=== PATIENT | female | born 1945 | race Caucasian/White ===

== ENCOUNTER 2025-04-12 14:24 | Inpatient (IN) | payer OTHER ==
[~2025-04-12] VITALS: Ht 149.9 cm; Wt 63.0 kg
[2025-04-12] MEDS: MORPHINE SULFATE 4 MG/ML SYR/VIAL IV ONE (15:21)
[2025-04-12] MEDS: ONDANSETRON HCL 4 MG/2 ML VIAL IV ONE (15:21)
--- NOTE | 2025-04-12 15:26 | DVH ---
EXAM DESCRIPTION: CT CT AB PEL WO CON-NO ORAL OR IV CLINICAL HISTORY: abd pain, eval hernia COMPARISON: None TECHNIQUE: CT abdomen and pelvis without IV contrast was performed. Coronal and sagittal MPR images were generat ed.CTDI/ DLP = 5.77 / 239.9 Dose reduction technique with one or more of the following methods was performed: Automated exposure control, adjustment of the mA and/or kV according to patient size, use of iterative reconstruction [place] FINDINGS: Lower chest: Clear lung bases. Liver: Homogenous in attenuation. . Biliary: No calcified gallstones. No biliary ductal dilatation. Pancreas: No fat stranding or focal lesion. Spleen: Normal in size.. Adrenal glands: No nodularity. No nodularity Kidneys: No nephrolithiasis. No hydroureteronephrosis. . Bladder: Underdistended, limiting evaluation. Reproductive organs: Normal. Bowel: No bowel wall thickening or dilatation. Colonic diverticulosis without evidence of diverticuli tis. Normal appendix.. Peritoneum: No free fluid. No free air. Vessels: Normal caliber abdominal aorta. Moderate atherosclerotic calcifications.. Lymph nodes: No suspicious lymph nodes. Soft tissues: Small fat containing upper abdominal ventral hernia. . Osseous structures: No acute fracture or subluxation. No suspicious osseous lesions. Degenerative c hanges of the visualized thoracolumbar spine. IMPRESSION: 1. No acute abnormality within the abdomen or pelvis.
[2025-04-12 15:27] LABS: Hematocrit 41.8 % (36.0-46.0); Hemoglobin 14.1 g/dL (12.2-16.2); Mean Corpuscular Hemoglobin 32.4 pg (28.0-32.0); Mean Corpuscular Volume 96.4 fL (80.0-100.0); Nucleated Red Blood Cells % 0.0 %
--- NOTE | 2025-04-12 15:52 | ED.PDOC ---
GI ASSESSMENT HPI Comments 79 y/o F with a history of dyslipidemia referred by urgent care for evaluation of a painful ventral hernia. Patient states she underwent right inguinal hernia repair years ago. At that time, she was told by her surgeon that she also had a supraumbilical hernia which he reduced intraoperatively. Patient states 3 days ago she began feeling supraumbilical pain and the hernia in that area began protruding. She states it is exquisitely painful and has not tried to push it back in. She also states it does not go back in when she is lying flat. She denies any fever, nausea, vomiting or constipation. Her last bowel movement was this morning. 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 Moist mucous membranes.) Neck: Full Range of Motion, Normal Inspection Respiratory: Lungs Clear, No Accessory Muscle Use, No Respiratory Distress, Normal Breath Sounds Cardiovascular: No Edema, No JVD, Regular Rate/Rhythm Breast Exam: Deferred Gastrointestinal: Soft, Other (Tender supraumbilical mass, approximate nicely 3 x 3 cm. No overlying discoloration.) Genitalia: Deferred Pelvic: Deferred Rectal: Deferred Extremities: Normal inspection, Normal range of motion, Non-tender, No pedal edema Neurologic: Alert (Oriented x4), Normal Affect, Normal Mood, Other (Ambulatory) Cerebellar Function: NOT DONE Reflexes: NOT DONE Skin: Dry, Normal Color, Warm Lymphatic: NOT DONE EKG EKG : Comments Sinus bradycardia, rate 48, normal intervals, normal axis, normal QRS, no ST/T changes. Was a procedure done? Was a procedure done?: No GI differential Dx Differential Diagnosis: Hernia Other Differential Diagnosis Uncomplicated hernia, strangulated or incarcerated hernia, bowel obstruction, neoplasm, among others X-Ray, Labs, Meds, VS Vital Signs Date Time Temp Pulse Resp B/P (MAP) Pulse Ox O2 Delivery O2 Flow Rate FiO2 04/12/25 19:00 51 17 127/69 (88) 04/12/25 18:51 127/59 04/12/25 18:00 49 13 99 Room Air* 0 21 04/12/25 18:00 98.2 49 13 147/78 (101) 99 98.2 04/12/25 16:49 51 14 139/72 (94) 98 04/12/25 16:32 48 04/12/25 15:21 52 14 150/71 04/12/25 14:25 98.1 53 18 128/76 98 98.1 Lab Test 04/12/25 18:33 04/12/25 16:16 04/12/25 15:17 Range/Units Urine Color Light-yellow Yellow Urine Clarity Clear Clear Urine pH 5.5 5.0-9.0 Urine Specific [place] 1.008 1.001-1.035 Urine Protein Negative Negative Urine Ketones Negative Negative Urine Blood Negative Negative /uL Urine Nitrite Negative Negative Urine Bilirubin Negative Negative Urine Urobilinogen Normal Negative mg/dL Urine Leukocyte Esterase 3+ Negative /uL Urine RBC 3 0 - 4 /hpf Urine Microscopic WBC 75 H 0-5 /HPF Urine Squamous Epithelial Cells Few <5 /hpf Urine Bacteria Few H None Seen /hpf Urine Glucose Normal Normal mg/dL Sodium Level 140 136-145 mmol/L Potassium Level 4.4 3.5-5.1 mmol/L Chloride Level 104 98-107 mmol/L Carbon Dioxide Level 28 20-31 mmol/L Anion Gap 8 5-15 Blood Urea Nitrogen 7 L 9-23 mg/dL Creatinine 0.67 0.550-1.02 mg/dL Glomerular Filtration Rate Calc 90 >90 mL/min BUN/Creatinine Ratio 10.4 10.0-20.0 Serum Glucose 104 74-106 mg/dL Calcium Level 9.5 8.7-10.4 mg/dL Total Bilirubin 0.6 0.2-1.0 mg/dL Aspartate Amino Transferase (AST) 34 13-40 U/L Alanine Aminotransferase (ALT) 22 7-40 U/L Alkaline Phosphatase 64 46-116 U/L Troponin I High Sensitivity < 3 L < 3 L </=34 ng/L Total Protein 6.8 5.7-8.2 g/dL Albumin 4.7 3.2-4.8 g/dL White Blood Count 6.5 4.4-10.8 10^3/uL Red Blood Count 4.34 4.0-5.20 10^6/uL Hemoglobin 14.1 12.2-16.2 g/dL Hematocrit 41.8 36.0-46.0 % Mean Corpuscular Volume 96.4 80.0-100.0 fL Mean Corpuscular Hemoglobin 32.4 H 28.0-32.0 pg Mean Corpuscular Hemoglobin Concent 33.6 32.0-36.0 g/dL Red Cell Distribution Width 13.2 11.8-14.3 % Platelet Count 273 140-450 10^3/uL Mean Platelet Volume 8.5 6.9-10.8 fL Neutrophils (%) (Auto) 62.1 37.0-80.0 % Lymphocytes (%) (Auto) 26.5 10.0-50.0 % Monocytes (%) (Auto) 8.3 0.0-12.0 % Eosinophils (%) (Auto) 2.0 0.0-7.0 % Basophils (%) (Auto) 1.1 0.0-2.0 % Neutrophils # (Auto) 4.1 1.6-8.6 10 ^3/uL Lymphocytes # (Auto) 1.7 0.4-5.4 10 ^3/uL Monocytes # (Auto) 0.5 0-1.3 10 ^3/uL Eosinophils # (Auto) 0.1 0-0.8 10 ^3/uL Basophils # (Auto) 0.1 0-0.2 10 ^3/uL Nucleated Red Blood Cells 0.0 % Lactic Acid Level 0.8 0.4-2.0 mmol/L Current Medications Medications (Trade) Dose Ordered Sig/Unique Route Start Time Stop Time Status Last Admin Ondansetron HCl (Zofran) 4 mg ONCE ONCE IV 04/12/25 15:00 04/12/25 15:01 DC 04/12/25 15:21 Morphine Sulfate 4 mg ONCE ONCE IV 04/12/25 15:00 04/12/25 15:01 DC 04/12/25 15:21 Fentanyl Citrate 25 mcg ONCE ONCE IV 04/12/25 18:45 04/12/25 18:46 DC 04/12/25 18:[address] [address] Ph: [phone] DIAGNOSTIC IMAGING Diagnostic Imaging Report : [id number] Signed PATIENT: KARMA JEWELL ACCT: [id number] UNIT: [id number] : 1945 LOC: ER ROOM / BED: / AGE / SEX: 79 / F ADM STATUS: REG ER SERVICE 1448 ORDERING PHYSICIAN: ESAU HIRSCH MD PROCEDURE(s): ABPL - CT AB PEL WO CON-NO ORAL OR IV REASON: abd pain, eval hernia ORDER NUMBER(s): [id number], ACCESSION NUMBER(s): [id number] EXAM DESCRIPTION: CT CT AB PEL WO CON-NO ORAL OR IV CLINICAL HISTORY: abd pain, eval hernia COMPARISON: None TECHNIQUE: CT abdomen and pelvis without IV contrast was performed. Coronal and sagittal MPR images were generated.CTDI/ DLP = 5.77 / 239.9 Dose reduction technique with one or more of the following methods was performed: Automated exposure control, adjustment of the mA and/or kV according to patient size, use of iterative reconstruction [place] FINDINGS: Lower chest: Clear lung bases. Liver: Homogenous in attenuation. . Biliary: No calcified gallstones. No biliary ductal dilatation. Pancreas: No fat stranding or focal lesion. Spleen: Normal in size.. Adrenal glands: No nodularity. No nodularity Kidneys: No nephrolithiasis. No hydroureteronephrosis. . Bladder: Underdistended, limiting evaluation. Reproductive organs: Normal. Bowel: No bowel wall thickening or dilatation. Colonic diverticulosis without evidence of diverticulitis. Normal appendix.. Peritoneum: No free fluid. No free air. Vessels: Normal caliber abdominal aorta. Moderate atherosclerotic calcifications.. Lymph nodes: No suspicious lymph nodes. Soft tissues: Small fat containing upper abdominal ventral hernia. . Osseous structures: No acute fracture or subluxation. No suspicious osseous lesions. Degenerative changes of the visualized thoracolumbar spine. IMPRESSION: 1. No acute abnormality within the abdomen or pelvis. ATED BY: TAMI BONILLA MD DICTATED DATE/TIME: 04/12/251523 SIGNED BY: TAMI BONILLA MD SIGNED DATE/TIME: 04/12/251523 CC: X-Ray, Labs, Meds, VS Comment 79 y/o F with a history of dyslipidemia referred by urgent care for evaluation of a painful ventral hernia. Vitals remarkable for BP 150/71, and heart rate as low as 48 Exam remarkable for a tender supraumbilical mass, approximate nicely 3 x 3 cm. No overlying discoloration. Rhythm strip independently interpreted by me: Sinus bradycardia, rate 48, no ectopy. CT abdomen and pelvis Soft tissues: Small fat containing upper abdominal ventral hernia. IMPRESSION: 1. No acute abnormality within the abdomen or pelvis. CBC, CMP, lactate and serial troponins unremarkable for any abnormality of acute significance Patient treated with the following in the ED: Morphine 4 mg IV, Zofran 4 mg IV, fentanyl 25 mcg IV Patient refused any attempts at manual reduction in the ED, stating the morphine did not significantly improve her pain, and the area in question was too tender to be touched. Plan is to admit the patient for pain control and surgical evaluation. Case discussed with EARL Vega, who agreed to admit the patient. Time of 1ST Reevaluation: 15:06 Reevaluation 1ST: Unchanged Patient Education/Counseling: Diagnosis, Treatment, Need For Follow Up Family Education/Counseling: No Family Present SEPSIS Sepsis Screen Date sepsis recognized/suspect: Apr 12, 2025 Time Sepsis recognized/suspect: 7 Recent Procedure: No On Antibiotic Therapy: No Respiratory Rate >20: No Heart Rate >90: No Temp<36 C (96.8 F) or >38.3 C: No SBP <90 or MAP <65 mmHG: No New Acute Mental Status Change: No Is the patient on CPAP, BIPAP,: No Physician Orders Troponin-I Hs (04/13/25 00:00) Ct Ab Pel Wo Con-No Oral Or Iv (04/12/25 14:48) Saline Lock (04/12/25 14:52) Vital Signs Date Time Temp Pulse Resp B/P (MAP) Pulse Ox O2 Delivery O2 Flow Rate FiO2 04/12/25 19:00 51 17 127/69 (88) 04/12/25 18:51 127/59 04/12/25 18:00 49 13 99 Room Air* 0 21 04/12/25 18:00 98.2 49 13 147/78 (101) 99 98.2 04/12/25 16:49 51 14 139/72 (94) 98 04/12/25 16:32 48 04/12/25 15:21 52 14 150/71 04/12/25 14:25 98.1 53 18 128/76 98 98.1 Laboratory Tests Test 04/12/25 15:17 Lactic Acid Level 0.8 mmol/L (0.4-2.0) White Blood Count 6.5 10^3/uL (4.4-10.8) Medications Medications Dose Ordered Sig/Unique Route Start Time Stop Time Status Last Admin Dose Admin Fentanyl Citrate 25 mcg ONCE ONCE IV 04/12/25 18:45 04/12/25 18:46 DC 04/12/25 18:51 Morphine Sulfate 4 mg ONCE ONCE IV 04/12/25 15:00 04/12/25 15:01 DC 04/12/25 15:21 Ondansetron HCl 4 mg ONCE ONCE IV 04/12/25 15:00 04/12/25 15:01 DC 04/12/25 15:21 Departure 1 Departure Time of Disposition: 17:00 Impression: Primary Impression: Ventral hernia Qualified Codes: K43.9 - Ventral hernia without obstruction or gangrene Additional Impression: Intractable pain Disposition: ADMITTED INPATIENT Admit to: Med Surg Condition: Fair Critical Care Note Critical Care Time?: No Stability Stability form required: No Heart Score Heart Score: Heart Score Response (Comments) Value History N/A 0 EKG N/A 0 Age N/A 0 Risk Factors N/A 0 Troponin N/A 0 Total 0 I personally scribed for ESAU HIRSCH MD ([email or web address]) on 04/12/25 at 16:39. Electronically submitted by Dangelo Sow [email or web address]). ESAU HIRSCH MD Apr 12, 2025 15:52
[2025-04-12 16:53] LABS: Alanine Aminotransferase 22 U/L (7-40); Albumin 4.7 g/dL (3.2-4.8); Alkaline Phosphatase 64 U/L (46-116); Anion Gap 8 (5-15); BUN/Creatinine Ratio 10.4 (10.0-20.0); Calcium 9.5 mg/dL (8.7-10.4); Carbon Dioxide 28 mmol/L (20-31); Chloride 104 mmol/L (98-107); Glucose 104 mg/dL (74-106); Potassium 4.4 mmol/L (3.5-5.1); Sodium 140 mmol/L (136-145); Total Protein 6.8 g/dL (5.7-8.2)
[2025-04-12 16:54] LABS: Bilirubin, Total 0.6 mg/dL (0.2-1.0)
[2025-04-12 16:56] LABS: Blood Urea Nitrogen 7 mg/dL (9-23)
[2025-04-12 18:00] VITALS: PULSE 49; RESP 13; O2SAT 99
[2025-04-12 18:51] LABS: Urine Protein, UAD Negative (Negative)
[2025-04-12] MEDS: fentaNYL CITRATE 100 MCG/2 ML VL IV ONE (18:51)
--- NOTE | 2025-04-12 19:00 | ECG ---
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
[2025-04-12] MEDS: DOCUSATE SOD 100 MG CAP PO ONE (20:22)
[2025-04-12] MEDS: cefTRIAXone 1GM/50ML D5W 50 ML IV ONE (20:23)
[2025-04-12 20:40] LABS: INR 1.01 (0.9-1.15); Prothrombin Time 10.7 sec (9.3-11.8)
[2025-04-12] MEDS ORDERED: ATOR10TA52 PO (22:20)
[2025-04-12] MEDS ORDERED: MONT-8 PO (22:20)
[2025-04-13] VITALS (8 sets, daily range): BP systolic 108–133; BP diastolic 54–80; PULSE 50–100; RESP 16–20; TEMP 97–98.4; O2SAT 95–99
--- NOTE | 2025-04-13 00:16 | DVHHP2 ---
Admitting Diagnosis: Ventral Hernia, abdominal pain, UTI History of Present Illness History Source: Patient Exam Limitations: No limitations HPI Mrs. Pia Aaron is a 79 yo female with a history of dyslipidemia referred by urgent care for evaluation of a painful ventral hernia. Patient states she underwent right inguinal hernia repair years ago. At that time, she was told by her surgeon that she also had a supraumbilical hernia which he reduced intraoperatively. Patient states 3 days ago she began feeling supraumbilical pain and the hernia in that area began protruding. She states it is exquisitely painful and has not tried to push it back in. She also states it does not go back in when she is lying flat. She denies any fever, nausea, vomiting or constipation. Her last bowel movement was yesterday morning. Home Meds Reported Medications Atorvastatin Calcium (ATORVASTATIN CALCIUM) 10 Mg Tab, 10 MG PO DAILY, TAB 04/12/25 Montelukast Sodium (MONTELUKAST SODIUM) 10 Mg Tab, 1 TAB PO DAILY 04/12/25 Past Medical History Cardiac: Other (Dyslipidemia) Pulmonary: No pertinent Hx Central Nervous System: No pertinent Hx GI: No pertinent Hx Hemotology/Oncology: No pertinent Hx Hepatobiliary: No pertinent Hx Psychiatric: No pertinent Hx Musculoskeletal: No pertinent Hx Rheumotologic: No pertinent Hx Infectious Disease: No peritnent Hx ENT: No pertinent Hx Renal/: No pertinent Hx Endocrine: No pertinent Hx Dermatology: No pertinent Hx Others supraumbilical hernia Past Surgical History: Hernia repair Patient Family History: Alzheimer's disease G8 MOTHER, , Age: 60 years and older FH: cancer G8 FATHER, , Age: 60 years and older Smoker: No Hx (Negative) Alocohol: None Drugs: None Lives with: With family Domestic Violence: Neg Review of Systems Constitutional: No symptom reported Ears, Nose, & Throat: No symptom reported Eyes: No symptom reported Pulmonary/Respiratory: No symptom reported Cardiovascular: No symptom reported Gastrointestinal: Abdominal Pain, Other (portruding ventral hernia) Genitourinary: No symptom reported Musculoskeletal: No symptom reported Skin: No symptom reported Psychiatric: No symptom reported Endocrine: No symptom reported Hemotologic/Lymphatic: No symptom reported H&P Exam Vital Signs Vital Signs Date Time Temp Pulse Resp B/P (MAP) Pulse Ox O2 Delivery O2 Flow Rate FiO2 04/12/25 22:00 61 18 124/70 (88) 94 04/12/25 21:46 Room Air* 0 21 04/12/25 20:00 98.1 98.1 General Appeara: Well developed, Well nourished, Normal Appearance Head Exam: Normal inspection Neck Exam: Normal inspection, Non-tender, Normal alignment Eye Exam: bilateral eye Normal inspection, bilateral eye PERRL, bilateral eye EOMI Ear Exam: bilateral ear Auricle normal Nasal Exam: Normal inspection Mouth: Normal Inspection Pulmonary/Respiratory: Normal inspection, Normal breath sounds, Chest non- tender, Lungs clear Cardiovascular/Chest: Normal inspection, Regular rate, Normal Rhythm Peripheral Pulses: 2+ dorsalis pedis (R), 2+ dorsalis pedis (L), 2+ Radial (R), 2+ Radial (L) Abdominal Exam: Normal bowel sounds, Soft, Other (ventral hernia) Rectal Exam: Deferred PHLEBOTOMY SUPPORT TECH Exam: Normal hearing, Normal speech, PERRL Motor/Sensory: Normal sensory function, Normal motor function Neuro/Mental St: Alert, Oriented Appearance: Appropriate appearance, Appropriate insight Eye contact/ Speech: Cooperative, Good eye contact, Normal speech Thoughts/Psych: Normal thought pattern Skin Exam: Normal inspection, Normal color, Warm/dry SEPSIS Sepsis Screen Date sepsis recognized/suspect: Apr 12, 2025 Time Sepsis recognized/suspect: 1929 Recent Procedure: No On Antibiotic Therapy: No Respiratory Rate >20: No Heart Rate >90: No Temp<36 C (96.8 F) or >38.3 C: No SBP <90 or MAP <65 mmHG: No New Acute Mental Status Change: No Is the patient on CPAP, BIPAP,: No Physician Orders Admit (04/12/25 19:40) Clear Liq Diet (04/13/25 Breakfast) * Surgical Consult (04/12/25 ) Chest Portable (04/12/25 19:40) Complete Blood Count (04/13/25 05:00) Complete Blood Count (04/14/25 05:00) Basic Metabolic Panel (04/13/25 05:00) Basic Metabolic Panel (04/14/25 05:00) Stat Ekg For Chest Pain (04/12/25 19:40) Notify Md Of Changes From Base (04/12/25 19:40) Experimental Mechanic [employer] For 24 Hours (04/12/25 19:40) Emergency Dysrhythmia Protocol (04/12/25 19:40) Rhythm Strips Once Every Shift (04/12/25 19:40) Oxygen By Nasal Cannula (04/12/25 19:40) Npo (Nothing By Mouth) Diet (04/13/25 Breakfast) Morphine Sulfate Injection (04/12/25 19:45) Ondansetron Hcl (Zofran) (04/12/25 19:45) Acetaminophen Tablet (Tylenol Tablet) (04/12/25 19:45) Pantoprazole (Protonix) (04/13/25 10:00) Hydrocodone-Acet 5/325mg Tab ([place] 5/32 (04/12/25 19:45) Electrocardigram (04/12/25 19:40) Ceftriaxone 1gm/50ml D5w (Rocephin) (04/13/25 10:00) Urine Bacterial Culture (04/12/25 19:49) Vital Signs Date Time Temp Pulse Resp B/P (MAP) Pulse Ox O2 Delivery O2 Flow Rate FiO2 04/12/25 22:00 61 18 124/70 (88) 94 04/12/25 21:46 Room Air* 0 21 04/12/25 20:00 98.1 49 10 124/105 (111) 97 98.1 04/12/25 19:30 Room Air* 0 21 04/12/25 19:00 51 17 127/69 (88) 04/12/25 18:51 127/59 04/12/25 18:00 49 13 99 Room Air* 0 21 04/12/25 18:00 98.2 49 13 147/78 (101) 99 98.2 04/12/25 16:49 51 14 139/72 (94) 98 04/12/25 16:32 48 Laboratory Tests Test 04/12/25 15:17 Lactic Acid Level 0.8 mmol/L (0.4-2.0) White Blood Count 6.5 10^3/uL (4.4-10.8) Medications Medications Dose Ordered Sig/Unique Route Start Time Stop Time Status Last Admin Dose Admin Ceftriaxone Sodium 50 ml @ 100 mls/hr ONCE ONCE IV 04/12/25 19:45 04/12/25 20:14 DC 04/12/25 20:23 100 MLS/HR Docusate Sodium 100 mg ONCE ONCE PO 04/12/25 19:45 04/12/25 19:52 DC 04/12/25 20:22 100 MG Fentanyl Citrate 25 mcg ONCE ONCE IV 04/12/25 18:45 04/12/25 18:46 DC 04/12/25 18:51 25 MCG Morphine Sulfate 4 mg ONCE ONCE IV 04/12/25 15:00 04/12/25 15:01 DC 04/12/25 15:21 4 MG Ondansetron HCl 4 mg ONCE ONCE IV 04/12/25 15:00 04/12/25 15:01 DC 04/12/25 15:21 4 MG Labs/Xrays Labs Test 04/12/25 20:00 04/12/25 18:33 04/12/25 16:16 04/12/25 15:17 Range/Units Prothrombin Time 10.7 9.3-11.8 sec Prothrombin Time INR 1.01 0.9-1.15 Urine Color Light-yellow Yellow Urine Clarity Clear Clear Urine pH 5.5 5.0-9.0 Urine Specific [place] 1.008 1.001-1.035 Urine Protein Negative Negative Urine Ketones Negative Negative Urine Blood Negative Negative /uL Urine Nitrite Negative Negative Urine Bilirubin Negative Negative Urine Urobilinogen Normal Negative mg/dL Urine Leukocyte Esterase 3+ Negative /uL Urine RBC 3 0 - 4 /hpf Urine Microscopic WBC 75 H 0-5 /HPF Urine Squamous Epithelial Cells Few <5 /hpf Urine Bacteria Few H None Seen /hpf Urine Glucose Normal Normal mg/dL Sodium Level 140 136-145 mmol/L Potassium Level 4.4 3.5-5.1 mmol/L Chloride Level 104 98-107 mmol/L Carbon Dioxide Level 28 20-31 mmol/L Anion Gap 8 5-15 Blood Urea Nitrogen 7 L 9-23 mg/dL Creatinine 0.67 0.550-1.02 mg/dL Glomerular Filtration Rate Calc 90 >90 mL/min BUN/Creatinine Ratio 10.4 10.0-20.0 Serum Glucose 104 74-106 mg/dL Calcium Level 9.5 8.7-10.4 mg/dL Total Bilirubin 0.6 0.2-1.0 mg/dL Aspartate Amino Transferase (AST) 34 13-40 U/L Alanine Aminotransferase (ALT) 22 7-40 U/L Alkaline Phosphatase 64 46-116 U/L Troponin I High Sensitivity < 3 L </=34 ng/L Total Protein 6.8 5.7-8.2 g/dL Albumin 4.7 3.2-4.8 g/dL White Blood Count 6.5 4.4-10.8 10^3/uL Red Blood Count 4.34 4.0-5.20 10^6/uL Hemoglobin 14.1 12.2-16.2 g/dL Hematocrit 41.8 36.0-46.0 % Mean Corpuscular Volume 96.4 80.0-100.0 fL Mean Corpuscular Hemoglobin 32.4 H 28.0-32.0 pg Mean Corpuscular Hemoglobin Concent 33.6 32.0-36.0 g/dL Red Cell Distribution Width 13.2 11.8-14.3 % Platelet Count 273 140-450 10^3/uL Mean Platelet Volume 8.5 6.9-10.8 fL Neutrophils (%) (Auto) 62.1 37.0-80.0 % Lymphocytes (%) (Auto) 26.5 10.0-50.0 % Monocytes (%) (Auto) 8.3 0.0-12.0 % Eosinophils (%) (Auto) 2.0 0.0-7.0 % Basophils (%) (Auto) 1.1 0.0-2.0 % Neutrophils # (Auto) 4.1 1.6-8.6 10 ^3/uL Lymphocytes # (Auto) 1.7 0.4-5.4 10 ^3/uL Monocytes # (Auto) 0.5 0-1.3 10 ^3/uL Eosinophils # (Auto) 0.1 0-0.8 10 ^3/uL Basophils # (Auto) 0.1 0-0.2 10 ^3/uL Nucleated Red Blood Cells 0.0 % Lactic Acid Level 0.8 0.4-2.0 mmol/L Assessment/Plan Problem List: (1) Intractable pain (2) Ventral hernia (3) UTI (urinary tract infection) Plan This is a 79 yo female with known history of supraumbilical hernia, hernia repair, dyslipidemia who presents to the hospital with intractable abdominal pain with protruding hernia. Patient found to have 1. Intractable abdominal pain 2. Ventral hernia 3. UTI 4. Dyslipidemia Plan Admit Telemetry General Surgeon consultation NPO after midnight IV fluids IV antibiotic Analgesics as needed Discussed all above with patient who verbalizes agreement and understanding of care plan. All questions were answered. Discussed with supervising MD. Plan discussed with: Patient, Other Code Visit Code Visit Total Time (mins): 45 STEVE GALLARDO Apr 13, 2025 00:16 KRISTY MAE MD Apr 13, 2025 16:43
--- NOTE | 2025-04-13 00:18 | DVH ---
EXAM: XY CHEST PORTABLE CLINICAL HISTORY: admitting TECHNIQUE: Single AP view of the chest WID: COMPARISON: CT abdomen and pelvis from same day FINDINGS: Lines and tubes: None Chest: The heart size and pulmonary vasculature is within normal limits. No pleural effusion, pneumothorax, or consolidation. The osseous structures are grossly intact. IMPRESSION: No acute cardiopulmonary abnormality.
[2025-04-13] MEDS: D5W/SOD CHL 0.45% 1,000 ML IV SCH (01:45)
[2025-04-13 08:09] LABS: Hematocrit 41.2 % (36.0-46.0); Hemoglobin 13.8 g/dL (12.2-16.2); Mean Corpuscular Hemoglobin 32.5 pg (28.0-32.0); Mean Corpuscular Volume 97.2 fL (80.0-100.0); Nucleated Red Blood Cells % 0.0 %
[2025-04-13 08:15] LABS: Chloride 105 mmol/L (98-107); Potassium 3.9 mmol/L (3.5-5.1); Sodium 142 mmol/L (136-145)
[2025-04-13 08:16] LABS: Anion Gap 7 (5-15); Calcium 9.0 mg/dL (8.7-10.4); Carbon Dioxide 30 mmol/L (20-31)
[2025-04-13 08:21] LABS: BUN/Creatinine Ratio 10.9 (10.0-20.0); Glucose 98 mg/dL (74-106)
[2025-04-13 08:23] LABS: Blood Urea Nitrogen 7 mg/dL (9-23)
[2025-04-13] MEDS: ENOXAPARIN SOD 40 MG/0.4 ML SYRINGE SC SCH (09:22)
[2025-04-13] MEDS: PANTOPRAZOLE 40 MG/10 ML VIAL INJ IV SCH (09:22)
[2025-04-13] MEDS: cefTRIAXone 1GM/50ML D5W 50 ML IV SCH (09:22)
[2025-04-13] MEDS: ACETAMINOPHEN 325 MG TAB PO PRN (09:24)
--- NOTE | 2025-04-13 09:25 | DVHINCON2 ---
Date of service: Apr 13, 2025 History of Present Illness 79 yo female who presents to hospital from urgent care due to abdominal pain. Pt has a known history of ventral hernia, which was reducible in past. The patient had a right inguinal hernia repair and bowel resection in Jun 2024. Pt states 3 days ago her ventral hernia bulged out and she had severe pain. Went to yesterday and there was concern for incarceration. Pt admitted to hospital for pain control and surgical consult placed. Pt had bm yesterday, had small amount of flatus ovn. Currently stable, resting in bed, no acute distress Past Medical History htn, hpl, respiratory issues Past Surgical History right ing hernia Family History: Alzheimer's disease G8 MOTHER, , Age: 60 years and older FH: cancer G8 FATHER, , Age: 60 years and older Allergies: Coded Allergies: NO KNOWN ALLERGIES (Unverified , 04/12/25) Home Meds Reported Medications Atorvastatin Calcium (ATORVASTATIN CALCIUM) 10 Mg Tab, 10 MG PO DAILY, TAB 04/12/25 Montelukast Sodium (MONTELUKAST SODIUM) 10 Mg Tab, 1 TAB PO DAILY 04/12/25 Current Medications Current Medications Medications (Trade) Dose Ordered Sig/Unique Route PRN Reason Start Time Stop Time Status Last Admin Morphine Sulfate 2 mg Q4HPRN PRN IV PAIN SCALE 7 THRU 10 04/12/25 19:45 Ondansetron HCl (Zofran) 4 mg Q6HPRN PRN IV NAUSEA / VOMITING 04/12/25 19:45 Acetaminophen (Tylenol Tablet) 650 mg Q6HPRN PRN PO PAIN SCALE 1-3 OR TEMP>100.4 04/12/25 19:45 Pantoprazole Sodium (Protonix) 40 mg DAILY IV 04/13/25 10:00 Acetaminophen/ Hydrocodone Bitart ([place] 5/325MG Tab) 1 tab Q6HPRN PRN PO PAIN SCALE 1 THRU 6 04/12/25 19:45 Ceftriaxone Sodium 50 ml @ 100 mls/hr DAILY IV 04/13/25 10:00 Dextrose/Sodium Chloride 1,000 ml @ 75 mls/hr [id number] IV 04/13/25 00:30 04/13/25 01:45 Enoxaparin Sodium (Lovenox) 40 mg DAILY SC 04/13/25 10:00 Review of Systems headache, otherwise neg unless mentioned in hpi Vital Signs Vital Signs Date Time Temp Pulse Resp B/P (MAP) Pulse Ox O2 Delivery O2 Flow Rate FiO2 04/13/25 09:00 98.2 56 19 124/72 (89) 96 98.2 04/12/25 21:46 Room Air* 0 21 Physical Exam gen; aaox3,nad cvs; palpable pulses lung; normal effort abd; soft, tender ventral/periumbilical hernia, partially reducible ext; no edema Labs/Diagnostic Data Labs Test 04/13/25 07:30 04/13/25 00:39 04/12/25 20:00 04/12/25 18:33 Range/Units White Blood Count 5.0 4.4-10.8 10^3/uL Red Blood Count 4.24 4.0-5.20 10^6/uL Hemoglobin 13.8 12.2-16.2 g/dL Hematocrit 41.2 36.0-46.0 % Mean Corpuscular Volume 97.2 80.0-100.0 fL Mean Corpuscular Hemoglobin 32.5 H 28.0-32.0 pg Mean Corpuscular Hemoglobin Concent 33.5 32.0-36.0 g/dL Red Cell Distribution Width 13.2 11.8-14.3 % Platelet Count 248 140-450 10^3/uL Mean Platelet Volume 8.6 6.9-10.8 fL Neutrophils (%) (Auto) 61.7 37.0-80.0 % Lymphocytes (%) (Auto) 24.2 10.0-50.0 % Monocytes (%) (Auto) 10.0 0.0-12.0 % Eosinophils (%) (Auto) 3.0 0.0-7.0 % Basophils (%) (Auto) 1.1 0.0-2.0 % Neutrophils # (Auto) 3.1 1.6-8.6 10 ^3/uL Lymphocytes # (Auto) 1.2 0.4-5.4 10 ^3/uL Monocytes # (Auto) 0.5 0-1.3 10 ^3/uL Eosinophils # (Auto) 0.1 0-0.8 10 ^3/uL Basophils # (Auto) 0.1 0-0.2 10 ^3/uL Nucleated Red Blood Cells 0.0 % Sodium Level 142 136-145 mmol/L Potassium Level 3.9 3.5-5.1 mmol/L Chloride Level 105 98-107 mmol/L Carbon Dioxide Level 30 20-31 mmol/L Anion Gap 7 5-15 Blood Urea Nitrogen 7 L 9-23 mg/dL Creatinine 0.64 0.550-1.02 mg/dL Glomerular Filtration Rate Calc 91 >90 mL/min BUN/Creatinine Ratio 10.9 10.0-20.0 Serum Glucose 98 74-106 mg/dL Calcium Level 9.0 8.7-10.4 mg/dL Troponin I High Sensitivity < 3 L </=34 ng/L Prothrombin Time 10.7 9.3-11.8 sec Prothrombin Time INR 1.01 0.9-1.15 Urine Color Light-yellow Yellow Urine Clarity Clear Clear Urine pH 5.5 5.0-9.0 Urine Specific [place] 1.008 1.001-1.035 Urine Protein Negative Negative Urine Ketones Negative Negative Urine Blood Negative Negative /uL Urine Nitrite Negative Negative Urine Bilirubin Negative Negative Urine Urobilinogen Normal Negative mg/dL Urine Leukocyte Esterase 3+ Negative /uL Urine RBC 3 0 - 4 /hpf Urine Microscopic WBC 75 H 0-5 /HPF Urine Squamous Epithelial Cells Few <5 /hpf Urine Bacteria Few H None Seen /hpf Urine Glucose Normal Normal mg/dL Test 04/12/25 16:16 04/12/25 15:17 Range/Units Total Bilirubin 0.6 0.2-1.0 mg/dL Aspartate Amino Transferase (AST) 34 13-40 U/L Alanine Aminotransferase (ALT) 22 7-40 U/L Alkaline Phosphatase 64 46-116 U/L Total Protein 6.8 5.7-8.2 g/dL Albumin 4.7 3.2-4.8 g/dL Lactic Acid Level 0.8 0.4-2.0 mmol/L Assessment 79 yo female with ventral hernia Plan/Recommendation cld npo after midnight pt ptt inr type and screen ekg cardiac clearance iv abx iv fluids pain control surgery 04/14/25 in afternoon Plan discussed with: Patient BANDAR MACARIO MD Apr 13, 2025 09:24
[2025-04-13 14:38] LABS: INR 1.02 (0.9-1.15); Partial Thromboplastin Time 27.4 SEC (24.5-34.5); Prothrombin Time 10.8 sec (9.3-11.8)
[2025-04-14] VITALS (7 sets, daily range): BP systolic 116–139; BP diastolic 41–76; PULSE 51–79; RESP 16–19; TEMP 97.3–97.9; O2SAT 95–99
[2025-04-14 07:34] LABS: Hematocrit 41.9 % (36.0-46.0); Hemoglobin 14.2 g/dL (12.2-16.2); Mean Corpuscular Hemoglobin 32.7 pg (28.0-32.0); Mean Corpuscular Volume 96.6 fL (80.0-100.0); Nucleated Red Blood Cells % 0.1 %
[2025-04-14 07:41] LABS: Chloride 107 mmol/L (98-107); Potassium 4.9 mmol/L (3.5-5.1); Sodium 143 mmol/L (136-145)
[2025-04-14 07:42] LABS: Anion Gap 7 (5-15); Calcium 9.5 mg/dL (8.7-10.4); Carbon Dioxide 29 mmol/L (20-31)
[2025-04-14 07:49] LABS: BUN/Creatinine Ratio 8.1 (10.0-20.0); Blood Urea Nitrogen < 5 mg/dL (9-23); Glucose 128 mg/dL (74-106)
[2025-04-14 07:53] LABS: COVID19 ANTIGEN SOFIA FIA NEGATIVE (NEGATIVE)
[2025-04-14] MEDS: MORPHINE SULFATE INJ 2 MG/ml SYRG IV PRN (09:52)
--- NOTE | 2025-04-14 10:23 | DVHINCON2 ---
Date of service: Apr 14, 2025 History of Present Illness 79 yo F with hx of hernia surgery, HTN admitted for abd pain and preop eval for hernai surgery. pt has no hx of cad or chf or mi. ecg shows Sinus sultana rate of 48. tele is stable Past Medical History reviewed Family History: Alzheimer's disease G8 MOTHER, , Age: 60 years and older FH: cancer G8 FATHER, , Age: 60 years and older Allergies: Coded Allergies: NO KNOWN ALLERGIES (Unverified , 04/12/25) Home Meds Reported Medications Atorvastatin Calcium (ATORVASTATIN CALCIUM) 10 Mg Tab, 10 MG PO DAILY, TAB 04/12/25 Montelukast Sodium (MONTELUKAST SODIUM) 10 Mg Tab, 1 TAB PO DAILY 04/12/25 Current Medications Current Medications Medications (Trade) Dose Ordered Sig/Unique Route PRN Reason Start Time Stop Time Status Last Admin Diphenhydramine HCl (Benadryl Capsule) 25 mg Q6HP PRN PO FOR ITCHING 04/13/25 14:45 04/13/25 15:04 Guaifenesin (Robitussin Plain Liquid) 200 mg Q6HP PRN PO FOR COUGH 04/13/25 14:45 04/13/25 20:32 Review of Systems 10 pt ros otherwise negative Vital Signs Vital Signs Date Time Temp Pulse Resp B/P (MAP) Pulse Ox O2 Delivery O2 Flow Rate FiO2 04/14/25 09:52 74 18 124/74 04/14/25 09:27 97.9 97 97.9 04/14/25 08:00 Room Air* 0 21 Physical Exam nad s1 s2 rrr ctab soft nt/nd no edema Labs/Diagnostic Data Labs Test 04/14/25 07:08 04/14/25 06:00 04/13/25 14:01 04/13/25 00:39 Range/Units White Blood Count 5.3 4.4-10.8 10^3/uL Red Blood Count 4.34 4.0-5.20 10^6/uL Hemoglobin 14.2 12.2-16.2 g/dL Hematocrit 41.9 36.0-46.0 % Mean Corpuscular Volume 96.6 80.0-100.0 fL Mean Corpuscular Hemoglobin 32.7 H 28.0-32.0 pg Mean Corpuscular Hemoglobin Concent 33.9 32.0-36.0 g/dL Red Cell Distribution Width 13.0 11.8-14.3 % Platelet Count 254 140-450 10^3/uL Mean Platelet Volume 8.4 6.9-10.8 fL Neutrophils (%) (Auto) 70.8 37.0-80.0 % Lymphocytes (%) (Auto) 16.9 10.0-50.0 % Monocytes (%) (Auto) 9.2 0.0-12.0 % Eosinophils (%) (Auto) 1.8 0.0-7.0 % Basophils (%) (Auto) 1.3 0.0-2.0 % Neutrophils # (Auto) 3.8 1.6-8.6 10 ^3/uL Lymphocytes # (Auto) 0.9 0.4-5.4 10 ^3/uL Monocytes # (Auto) 0.5 0-1.3 10 ^3/uL Eosinophils # (Auto) 0.1 0-0.8 10 ^3/uL Basophils # (Auto) 0.1 0-0.2 10 ^3/uL Nucleated Red Blood Cells 0.1 % Sodium Level 143 136-145 mmol/L Potassium Level 4.9 3.5-5.1 mmol/L Chloride Level 107 98-107 mmol/L Carbon Dioxide Level 29 20-31 mmol/L Anion Gap 7 5-15 Blood Urea Nitrogen < 5 L 9-23 mg/dL Creatinine 0.62 0.550-1.02 mg/dL Glomerular Filtration Rate Calc 92 >90 mL/min BUN/Creatinine Ratio 8.1 L 10.0-20.0 Serum Glucose 128 H 74-106 mg/dL Calcium Level 9.5 8.7-10.4 mg/dL Influenza Type A Antigen Negative Negative Influenza Type B Antigen Negative Negative SARS-CoV-2 Antigen (Rapid) Negative NEGATIVE Prothrombin Time 10.8 9.3-11.8 sec Prothrombin Time INR 1.02 0.9-1.15 Activated Partial Thromboplast Time 27.4 24.5-34.5 SEC Troponin I High Sensitivity < 3 L </=34 ng/L Test 04/12/25 18:33 04/12/25 16:16 04/12/25 15:17 Range/Units Urine Color Light-yellow Yellow Urine Clarity Clear Clear Urine pH 5.5 5.0-9.0 Urine Specific [place] 1.008 1.001-1.035 Urine Protein Negative Negative Urine Ketones Negative Negative Urine Blood Negative Negative /uL Urine Nitrite Negative Negative Urine Bilirubin Negative Negative Urine Urobilinogen Normal Negative mg/dL Urine Leukocyte Esterase 3+ Negative /uL Urine RBC 3 0 - 4 /hpf Urine Microscopic WBC 75 H 0-5 /HPF Urine Squamous Epithelial Cells Few <5 /hpf Urine Bacteria Few H None Seen /hpf Urine Glucose Normal Normal mg/dL Total Bilirubin 0.6 0.2-1.0 mg/dL Aspartate Amino Transferase (AST) 34 13-40 U/L Alanine Aminotransferase (ALT) 22 7-40 U/L Alkaline Phosphatase 64 46-116 U/L Total Protein 6.8 5.7-8.2 g/dL Albumin 4.7 3.2-4.8 g/dL Lactic Acid Level 0.8 0.4-2.0 mmol/L Microbiology Date/Time Source Procedure Growth Status 04/12/25 18:33 Voided Urine Urine Culture - Preliminary Resulted Assessment preop eval HTN hernia abd pain Plan/Recommendation ecg is SR and normal axis echo shows normal lvef pt does all ADLs no active cv symptoms pt intermediate risk ok to proceed to surgery Plan discussed with: Patient CAMMY CHEN MD Apr 14, 2025 10:23
--- NOTE | 2025-04-14 10:33 | DVHSR ---
APPROVED REPORT EXAM: Two-dimensional and M-mode echocardiogram with Doppler and color Doppler. Blood Pressure: 127/71 mmHg INDICATION Pre-Op RISK FACTORS Height: 4'11", Weight: 121 DIMENSIONS LVDd3.9 (3.8-5.7cm)LA (2D)3.4 (1.9-4.0cm)Aortic Root3.2 (2.0-3.7cm) LVDs2.8 (2.5-4.0cm)LA (MM) (1.9-4.0cm)Aortic Cusp Exc1.7 (1.5-2.0cm) EF (%) 60.0 (55-70%)Rt. Atrium3.8 (1.9-4.0cm)Asc. Aorta cm IVSd1.0 (0.7-1.1cm)RV (D) (1.8-2.4cm) PWd0.8 (0.7-1.1cm) Mitral Valve MitralMitral Stenosis E wave0.83m/sMV Mean GR.mmHg A wave0.81m/sMV Peak GR.mmHg E/A ratio1.02D MVAcm2 DECEL [id number] 1/2 [place] Aortic Valve Aortic ValveAortic Stenosis V11.15m/Roland Mean GR.3mmHg V21.20m/Roland Peak GR.6mmHg LVOT Diameter1.8 (1.8-2.4cm)Doppler AVA2.44cm2 Pulmonic Valve V20.62m/s Tricuspid Valve TR Velocity2.76m/s [id number] Other Information Quality : Rhythm : Bradycardia Conclusion lvef 60% by visual estimate mild lvh normal rv function no severe valve abnormalities noted
[2025-04-14] MEDS ORDERED: ROCURONIUM 10MG/ML 10ML VIAL IV ONE (14:54)
[2025-04-14] MEDS ORDERED: ONDANSETRON HCL 4 MG/2 ML VIAL ONE (14:54)
[2025-04-14] MEDS ORDERED: fentaNYL CITRATE 100 MCG/2 ML VL ONE (14:54)
[2025-04-14] MEDS ORDERED: GLYCOPYRROLATE 0.2 MG/ML 1ML VIAL ONE (14:54)
[2025-04-14] MEDS ORDERED: MIDAZOLAM HCL 2MG/2ML 2ml VIAL (1mg/ml) ONE (14:54)
[2025-04-14] MEDS ORDERED: PROPOFOL 10 MG/ML 20 ML IV ONE (14:54)
[2025-04-14] MEDS ORDERED: LIDOCAINE 2% (LOCAL ANESTH.) PF 5ml SDV ONE (14:54)
[2025-04-14] MEDS ORDERED: KETOROLAC TROMETH 30 MG/ML 1ML VIAL ONE (14:54)
[2025-04-14] MEDS ORDERED: KETAMINE 50mg/ML 1ml syringe ONE (14:54)
[2025-04-14] MEDS: FAMOTIDINE (10MG/ML) 2ML VL IV ONE (16:05)
[2025-04-14] MEDS ORDERED: HYDROmorphone HCL 2 MG/ML VL/or syr ONE (16:22)
--- NOTE | 2025-04-14 16:23 | DVHPN2 ---
Subjective Patient's currently tolerating full liquid diet requesting regular diet. But patient does not have any flatus or bowel movement yet. 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 Medications Current Medications Medications Dose Ordered Sig/Unique Route Start Time Stop Time Status Last Admin Dose Admin Morphine Sulfate 2 mg Q4HPRN PRN IV 04/12/25 19:45 04/14/25 09:52 2 MG Ondansetron HCl 4 mg Q6HPRN PRN IV 04/12/25 19:45 Acetaminophen 650 mg Q6HPRN PRN PO 04/12/25 19:45 04/13/25 15:06 650 MG Pantoprazole Sodium 40 mg DAILY IV 04/13/25 10:00 04/14/25 09:50 40 MG Acetaminophen/ Hydrocodone Bitart 1 tab Q6HPRN PRN PO 04/12/25 19:45 Ceftriaxone Sodium 50 ml @ 100 mls/hr DAILY IV 04/13/25 10:00 04/14/25 09:50 100 MLS/HR Dextrose/Sodium Chloride 1,000 ml @ 75 mls/hr [id number] IV 04/13/25 00:30 04/13/25 21:25 75 MLS/HR Enoxaparin Sodium 40 mg DAILY SC 04/13/25 10:00 Diphenhydramine HCl 25 mg Q6HP PRN PO 04/13/25 14:45 04/13/25 15:04 25 MG Guaifenesin 200 mg Q6HP PRN PO 04/13/25 14:45 04/13/25 20:32 200 MG Laboratory Results Laboratory Tests 04/14/25 07:08 Chemistry Test 04/14/25 07:08 Calcium Level 9.5 mg/dL (8.7-10.4) Urinalysis Test 04/12/25 18:33 Urine Color Light-yellow (Yellow) Urine Clarity Clear (Clear) Urine pH 5.5 (5.0-9.0) Urine Specific [place] 1.008 (1.001-1.035) Urine Protein Negative (Negative) Urine Ketones Negative (Negative) Urine Blood Negative /uL (Negative) Urine Nitrite Negative (Negative) Urine Bilirubin Negative (Negative) Urine Urobilinogen Normal mg/dL (Negative) Urine Leukocyte Esterase 3+ /uL (Negative) Urine RBC 3 /hpf (0 - 4) Urine Microscopic WBC 75 /HPF (0-5) H Urine Squamous Epithelial Cells Few /hpf (<5) Urine Bacteria Few /hpf (None Seen) H Urine Glucose Normal mg/dL (Normal) Microbiology Microbiology Date/Time Source Procedure Growth Status 04/12/25 18:33 Voided Urine Urine Culture - Preliminary Resulted Assessment/Plan Assessment/Plan 79-year-old female with a known history of COPD, dyslipidemia who was seen in urgent care for abdominal pain and abdominal mann found to have 1. Incarcerated abdominal wall hernia status post primary repair 2. COPD not in exacerbation 3. Dyslipidemia -full liquid diet as tolerated, add MiraLax 17 g p.o. twice a day -discharge plan once cleared by General surgery. Plan discussed with: Patient, Spouse My Orders Orders - KRISTY MAE MD Procedure Category Date Status Time Echo 2d Mode Cardiac US 04/13/25 Resulted DOP 16:41 * Cardiology Consult CONS 04/13/25 Transmitted 16:41 Date of Service: Apr 15, 2025 Billing Provider: KRISTY MAE MD Common Visit Codes: NOT BILLABLE KRISTY MAE MD Apr 14, 2025 16:23
[2025-04-14] MEDS: ceFAZolin 1GM VL ONE (16:33)
[2025-04-14] MEDS: BUPIVACAINE HCL 0.25% P/F 10 ML VIAL ONE (16:37)
[2025-04-14] MEDS: LIDOCAINE W/ EPINEPHRINE 1% 20ML VIAL ONE (16:37)
[2025-04-14] MEDS ORDERED: SUGAMMADEX 200mg/2ml Vial (100MG/ML) IV ONE (16:46)
--- NOTE | 2025-04-14 17:18 | DVHOP2 ---
Operative Report Preop Diagnosis: Incarcerated Ventral Hernia Postop Diagnosis: Same Procedure Performed: Primary Repair of incarcerated ventral hernia, 7 cm complex layered closure Surgeon: Dr. Bandar Macario Anesthesia: Dr. Marroquin Anesthesia administered: General and Local 30cc EBL: 5cc Specimen: Incarcerated hernia sac and content Complications: none Indications: 79 yo female was at found to have painful bulge in supraumbilical region, found to have incarcerated hernia, no obstructive symptoms. Was explained risks, benefits, alternatives of surgery, and consented as such Findings: 2x1cm defect in fascia containing incarcerated but viable omentem Procedure in detail: Pt identified in preop, questions answered, consent c onfirmed. Transferred to OR, appropriately padded, positioned and secured to table. General anesthesia was administered, afterwards pt widely prepped and draped in the usual sterile fashion. Timeout performed, all in agreement. 7 cm supraumbilical and periumbilical incision made vertically in midline, carried down with 15 scalpel. Deepened with cautery to the hernia. Hernia was dissected free from surrounding structures. Appeared incarcerated. Was dissected free. Followed down to fascia. Was dissected free from fascia, sac opened and contained incarcerated but viable omentum. Sac freed and released into abdomen. Sac excised and passed to pathological analysis. Underside of fascia was cleared of adhesions as was the anterior surface 3 cm circumferentially. Due to size and nature of defect, the repair was performed with 0 surgilon and 0 vicryl in an interrupted manner. Wound irrigated with ancef irrigation. Hemostasis secured with cautery. A 7 cm complex layered closure performed with 0 vicryl, 2-0 vicryl, and 3-0 vicryl. 4-0 for skin. Local infiltrated into wound. Skin glue and sterile dressings applied. Abd binder applied. All counts correct x 2 at end of case. Pt tolerated procedure well, transferred to pacu in stable condition. BANDAR MACARIO MD Apr 14, 2025 17:18
[2025-04-14] MEDS ORDERED: MORPHINE SULFATE INJ 2 MG/ml SYRG IV PRN (17:30)
[2025-04-14] MEDS: ONDANSETRON HCL 4 MG/2 ML VIAL IV PRN (19:43)
[2025-04-15] VITALS (8 sets, daily range): BP systolic 107–137; BP diastolic 48–71; PULSE 48–79; RESP 15–18; TEMP 97.1–98.2; O2SAT 95–99
[2025-04-15] MEDS: POLYETHYLENE GLYCOL 17 GM PWDR PO SCH (15:43)
[2025-04-15] MEDS: HYDROcodone-ACET 5/325MG TAB PO PRN (15:46)
[2025-04-16 05:00] VITALS: BP 140/63; PULSE 57; RESP 18; TEMP 98.2; O2SAT 98
[2025-04-16 08:00] VITALS: PULSE 67
[2025-04-16 09:38] VITALS: BP 145/85; PULSE 66; RESP 17; TEMP 98.4; O2SAT 94
[2025-04-16] MEDS ORDERED: DOCU-94 PO (11:30)
[2025-04-16] MEDS ORDERED: HYDR-4902 PO (11:30)
--- NOTE | 2025-04-16 11:33 | DVHPN2 ---
Subjective Patient's currently tolerating full liquid diet requesting regular diet. But patient does not have any flatus or bowel movement yet. 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 Medications Current Medications Medications Dose Ordered Sig/Unique Route Start Time Stop Time Status Last Admin Dose Admin Ondansetron HCl 4 mg Q6HPRN PRN IV 04/12/25 19:45 04/14/25 19:43 4 MG Acetaminophen 650 mg Q6HPRN PRN PO 04/12/25 19:45 04/15/25 05:48 650 MG Pantoprazole Sodium 40 mg DAILY IV 04/13/25 10:00 04/15/25 09:46 40 MG Acetaminophen/ Hydrocodone Bitart 1 tab Q6HPRN PRN PO 04/12/25 19:45 04/16/25 10:09 1 TAB Ceftriaxone Sodium 50 ml @ 100 mls/hr DAILY IV 04/13/25 10:00 04/15/25 09:46 100 MLS/HR Dextrose/Sodium Chloride 1,000 ml @ 75 mls/hr [id number] IV 04/13/25 00:30 04/14/25 16:30 75 MLS/HR Enoxaparin Sodium 40 mg DAILY SC 04/13/25 10:00 04/16/25 10:09 40 MG Diphenhydramine HCl 25 mg Q6HP PRN PO 04/13/25 14:45 04/13/25 15:04 25 MG Guaifenesin 200 mg Q6HP PRN PO 04/13/25 14:45 04/13/25 20:32 200 MG Morphine Sulfate 2 mg Q2HPRN PRN IV 04/14/25 17:30 Polyethylene Glycol 17 gm BID PO 04/15/25 13:20 04/15/25 20:31 17 GM Laboratory Results Laboratory Tests 04/14/25 07:08 Urinalysis Test 04/12/25 18:33 Urine Color Light-yellow (Yellow) Urine Clarity Clear (Clear) Urine pH 5.5 (5.0-9.0) Urine Specific [place] 1.008 (1.001-1.035) Urine Protein Negative (Negative) Urine Ketones Negative (Negative) Urine Blood Negative /uL (Negative) Urine Nitrite Negative (Negative) Urine Bilirubin Negative (Negative) Urine Urobilinogen Normal mg/dL (Negative) Urine Leukocyte Esterase 3+ /uL (Negative) Urine RBC 3 /hpf (0 - 4) Urine Microscopic WBC 75 /HPF (0-5) H Urine Squamous Epithelial Cells Few /hpf (<5) Urine Bacteria Few /hpf (None Seen) H Urine Glucose Normal mg/dL (Normal) Microbiology Microbiology Date/Time Source Procedure Growth Status 04/12/25 18:33 Voided Urine Urine Culture - Final Complete Assessment/Plan Assessment/Plan 79-year-old female with a known history of COPD, dyslipidemia who was seen in urgent care for abdominal pain and abdominal mann found to have 1. Incarcerated abdominal wall hernia status post primary repair 2. COPD not in exacerbation 3. Dyslipidemia -full liquid diet as tolerated, add MiraLax 17 g p.o. twice a day -discharge plan once cleared by General surgery. Plan discussed with: Patient, Spouse My Orders Orders - KRISTY MAE MD Procedure Category Date Status Time Polyethylene Glycol PHA 04/15/25 In Process 17g Powder (Miralax 13:20 Date of Service: Apr 15, 2025 Billing Provider: KRISTY MAE MD Common Visit Codes: NOT BILLABLE KRISTY MAE MD Apr 16, 2025 11:33
--- NOTE | 2025-04-16 11:36 | DVHDS2 ---
Discharge Summary Date of Admission Apr 12, 2025 at 19:40 Date of Discharge: Apr 16, 2025 Labs/Diagnostic Data: Laboratory Results Test 04/14/25 07:08 04/14/25 06:00 04/13/25 14:01 04/13/25 00:39 White Blood Count 5.3 10^3/uL (4.4-10.8) Red Blood Count 4.34 10^6/uL (4.0-5.20) Hemoglobin 14.2 g/dL (12.2-16.2) Hematocrit 41.9 % (36.0-46.0) Mean Corpuscular Volume 96.6 fL (80.0-100.0) Mean Corpuscular Hemoglobin 32.7 pg (28.0-32.0) Mean Corpuscular Hemoglobin Concent 33.9 g/dL (32.0-36.0) Red Cell Distribution Width 13.0 % (11.8-14.3) Platelet Count 254 10^3/uL (140-450) Mean Platelet Volume 8.4 fL (6.9-10.8) Neutrophils (%) (Auto) 70.8 % (37.0-80.0) Lymphocytes (%) (Auto) 16.9 % (10.0-50.0) Monocytes (%) (Auto) 9.2 % (0.0-12.0) Eosinophils (%) (Auto) 1.8 % (0.0-7.0) Basophils (%) (Auto) 1.3 % (0.0-2.0) Neutrophils # (Auto) 3.8 10 ^3/uL (1.6-8.6) Lymphocytes # (Auto) 0.9 10 ^3/uL (0.4-5.4) Monocytes # (Auto) 0.5 10 ^3/uL (0-1.3) Eosinophils # (Auto) 0.1 10 ^3/uL (0-0.8) Basophils # (Auto) 0.1 10 ^3/uL (0-0.2) Nucleated Red Blood Cells 0.1 % Sodium Level 143 mmol/L (136-145) Potassium Level 4.9 mmol/L (3.5-5.1) Chloride Level 107 mmol/L (98-107) Carbon Dioxide Level 29 mmol/L (20-31) Anion Gap 7 (5-15) Blood Urea Nitrogen < 5 mg/dL (9-23) Creatinine 0.62 mg/dL (0.550-1.02) Glomerular Filtration Rate Calc 92 mL/min (>90) BUN/Creatinine Ratio 8.1 (10.0-20.0) Serum Glucose 128 mg/dL (74-106) Calcium Level 9.5 mg/dL (8.7-10.4) Influenza Type A Antigen Negative (Negative) Influenza Type B Antigen Negative (Negative) SARS-CoV-2 Antigen (Rapid) Negative (NEGATIVE) Prothrombin Time 10.8 sec (9.3-11.8) Prothrombin Time INR 1.02 (0.9-1.15) Activated Partial Thromboplast Time 27.4 SEC (24.5-34.5) Troponin I High Sensitivity < 3 ng/L (</=34) Test 04/12/25 18:33 04/12/25 16:16 04/12/25 15:17 Urine Color Light-yellow (Yellow) Urine Clarity Clear (Clear) Urine pH 5.5 (5.0-9.0) Urine Specific [place] 1.008 (1.001-1.035) Urine Protein Negative (Negative) Urine Ketones Negative (Negative) Urine Blood Negative /uL (Negative) Urine Nitrite Negative (Negative) Urine Bilirubin Negative (Negative) Urine Urobilinogen Normal mg/dL (Negative) Urine Leukocyte Esterase 3+ /uL (Negative) Urine RBC 3 /hpf (0 - 4) Urine Microscopic WBC 75 /HPF (0-5) Urine Squamous Epithelial Cells Few /hpf (<5) Urine Bacteria Few /hpf (None Seen) Urine Glucose Normal mg/dL (Normal) Total Bilirubin 0.6 mg/dL (0.2-1.0) Aspartate Amino Transferase (AST) 34 U/L (13-40) Alanine Aminotransferase (ALT) 22 U/L (7-40) Alkaline Phosphatase 64 U/L (46-116) Total Protein 6.8 g/dL (5.7-8.2) Albumin 4.7 g/dL (3.2-4.8) Lactic Acid Level 0.8 mmol/L (0.4-2.0) Other Laboratory Tests 04/14/25 07:08 Brief Hx & Hospital Course: 79-year-old female with a known history of COPD, dyslipidemia who was seen in urgent care for abdominal pain and abdominal pain found to have incarcerated abdominal wall hernia. Patient was eventually admitted, General surgery was consulted. Patient underwent exploratory laparotomy with a primary repair of hernia in the ventral abdominal wall hernia. Patient's hospital course was uneventful patient is currently we will be discharged to home with p.o. narcotics and laxatives. Patient needs to follow up with the General surgery in 1-2 weeks. Condition at Discharge: Stable Final Diagnosis/Problems List 79-year-old female with a known history of COPD, dyslipidemia who was seen in urgent care for abdominal pain and abdominal mann found to have 1. Incarcerated abdominal wall hernia status post primary repair 2. COPD not in exacerbation 3. Dyslipidemia -full liquid diet as tolerated, add Carmina Discharge Disposition: Home SNF Discharge Will this Physician continue t: No Discharge Instruct/Medications Diet: Cardiac 2g Na,low cholest Activity: See Comment Activity comment: No driving, no signing legal documents, no playing on machinery while on narcotics. Follow Up/Referral: Follow up with the PCP in 1-2 weeks Follow up with Dr. Erick Young in 1-2 weeks Medications: As prescribed and reconciled. New Medications: Docusate Sodium (Colace) 100 Mg Cap 1 CAP PO BID, #30 CAP Hydrocodone-Acetaminophen (Hydrocodone Bitartrate/AC 5-325 mg) 1 Tab Tab 1 TAB PO Q6HP PRN, #14 TAB Continued Medications: Atorvastatin Calcium (Atorvastatin Calcium) 10 Mg Tab 10 MG PO DAILY, TAB Montelukast Sodium (Montelukast Sodium) 10 Mg Tab 1 TAB PO DAILY Scheduled Atorvastatin Calcium (Atorvastatin Calcium), 10 MG PO DAILY, (Reported) Docusate Sodium (Colace), 1 CAP PO BID Montelukast Sodium (Montelukast Sodium), 1 TAB PO DAILY, (Reported) Scheduled PRN Hydrocodone-Acetaminophen (Hydrocodone Bitartrate/AC 5-325 mg), 1 TAB PO Q6HP PRN Discharge Statement: "Patient was advised to return to the ER or call 911 if any headaches, dizziness, shortness of breath, chest pain, abdominal pain, bleeding, fevers, or worsening of medical condition. Patient was counseled about treatment plan, medications, possible side effects, patientverbalized understanding. All questions were answered to the best of my ability. This discharge took greater then 30 minutes in planning, reviewing documentation, counseling the patient, and discussing with other team members." ASSESSMENT ASSESSMENT Assessment 79-year-old female with a known history of COPD, dyslipidemia who was seen in urgent care for abdominal pain and abdominal mann found to have 1. Incarcerated abdominal wall hernia status post primary repair 2. COPD not in exacerbation 3. Dyslipidemia -full liquid diet as tolerated, add Carmina Date of Service: Apr 16, 2025 Billing Provider: KRISTY MAE MD Common Visit Codes: NOT BILLABLE KRISTY MAE MD Apr 16, 2025 11:36
[2025-04-16 12:33] VITALS: TEMP 36.9
[2025-04-16 12:34] VITALS: BP 115/47; PULSE 60; RESP 16; TEMP 98.2; O2SAT 94
[2025-04-16 16:59] VITALS: BP 135/57; PULSE 58; RESP 17; TEMP 98.3; O2SAT 98
== END 2025-04-16 17:45 | disposition home or self-care (01) | DRG 354 ==
LOC: ER 14:24 → OVERFLOW 19:40 → TELE-WESTW 22:15
PROVIDERS: ADMIT Nurse Practitioner Family; ATTEND Nurse Practitioner Family
PROC: 0WQF0ZZ Repair Abdominal Wall, Open Approach (ICD-10-PCS; principal; 2025-04-14 16:05)
DX: K43.6 Other and unspecified ventral hernia with obstruction, without gangrene (principal); N30.00 Acute cystitis without hematuria; E78.5 Hyperlipidemia, unspecified; J44.9 Chronic obstructive pulmonary disease, unspecified; I10 Essential (primary) hypertension; Z98.51 Tubal ligation status; Z82.0 Family history of epilepsy and other diseases of the nervous system; Z79.899 Other long term (current) drug therapy
CPT/HCPCS: 36415; 71045; 74176; 80048; 80053; 81001; 83605; 84484; 85025; 85610; 85730; 87086; 87426; 87804; 93005; 93306; 96374; 96375; G0378; J0690; J1100; J1885; J2003; J2250; J2405; J2470; J2704; J3490